=== PATIENT | male | born 1985 | race Caucasian/White ===

== ENCOUNTER 2016-12-28 16:15 | Emergency (ER) | payer MEDICAID, OTHER ==
--- OUTSIDE RECORDS SUMMARY | 2016-12-28 16:49 | XMS REPORT | CCD ---
:1985 Author Name RADHA KERN Address [address] Unavailable [place], [place] [address] Care Team Providers Name Role Phone GERALDINE AHUJA Attending Physician Unavailable GERALDINE AHUJA Er Physician 1 Unavailable Vital Signs Unknown or Not Available. Allergies Allergy Code Allergy Type Reaction Status CODEINE 2670 Drug allergy Active Procedures Unknown or Not Available. History of Immunizations Unknown or Not Available. Problems Unknown or Not Available. Results Unknown or Not Available. Active Medications Medication Code Dose Units Frequency Route Modification Start Date/Time KlonoPIN 0.5MG 205233 0.5 MILLIGRAMS ORAL 02/17/2015 Oral Tablet 19:42 Omeprazole 20MG 438163 20 MILLIGRAMS ORAL 02/17/2015 Oral Capsule, 19:42 Delayed Release Albuterol HFA 152924 1-2 PUFF Every 4hr as INHALED FOR WHEEZING 2014 0.09MG/1INH needed 12:53 Inhalation Aerosol Powder PREDNISONE 30 0 1 TABLET TWICE A DAY ORAL 02/15/2015 MG 12:50 Medications Administered During Visit Unknown or Not Available. Encounters Encounter Diagnosis Diagnosis Code Start Date ACUTE BRONCHOSPASM 94620 02/15/2015 Social History Smoking Status Code Start Date End Date Current every day smoker [id number] Patient Decision Aids Unknown or Not Available. Discharge Instructions You were admitted to [facility] on 02/15/2015 with a principal diagnosis of ACUTE BRONCHOSPASM. You were discharged from [facility] on 02/15/2015. Should you have any questions prior to discharge, please contact a member of your healthcare team. If you have left the hospital and have any questions, please contact your primary care physician. Chief Complaint and Reason For Visit Chief Complaint Date of Onset COUGH CONGESTION Function Status Unknown or Not Available. Plan of Care Unknown or Not Available. Referral/Transition of Care Unknown or Not Available.
--- OUTSIDE RECORDS SUMMARY | 2016-12-28 16:49 | XMS REPORT | CCD ---
:1985 Author Name RADHA KERN Address [address] Unavailable [place], [place] [id number] Care Team Providers Name Role Phone TREVIN SWEENEY MD Attending Physician Unavailable TREVIN SWEENEY MD Er Physician 1 Unavailable KAYLEY Jeff Registered Nurse Unavailable Vital Signs Vital Sign Value Unit Date/Time Recent/Initial? Weight Measured 212 lbs 02/17/2015 19:06 Initial VS Height 67 in 02/17/2015 19:06 Initial VS BMI (Body Mass Index) 33.2 kg/m^2 02/17/2015 19:06 Initial VS BSA (Body Surface Area) 2.13 m^2 02/17/2015 19:06 Initial VS Allergies Allergy Code Allergy Type Reaction Status CODEINE 2670 Drug allergy Active Procedures Unknown or Not Available. History of Immunizations Unknown or Not Available. Problems Unknown or Not Available. Results Unknown or Not Available. Active Medications Medication Code Dose Units Frequency Route Modification Start Date/Time KlonoPIN 0.5MG 689305 0.5 MILLIGRAMS ORAL 02/17/2015 Oral Tablet 19:42 Omeprazole 20MG 576606 20 MILLIGRAMS ORAL 02/17/2015 Oral Capsule, 19:42 Delayed Release Albuterol HFA 912852 1-2 PUFF Every 4hr as INHALED FOR WHEEZING 2014 0.09MG/1INH needed 12:53 Inhalation Aerosol Powder Medications Administered During Visit Unknown or Not Available. Encounters Encounter Diagnosis Diagnosis Code Start Date ASTHMA, UNSPECIFIED 84897 02/17/2015 Social History Smoking Status Code Start Date End Date Current every day smoker [id number] Patient Decision Aids Unknown or Not Available. Discharge Instructions You were admitted to [facility] on 02/17/2015 with a principal diagnosis of ASTHMA, UNSPECIFIED. You were discharged from [facility] on 02/17/2015. Should you have any questions prior to discharge, please contact a member of your healthcare team. If you have left the hospital and have any questions, please contact your primary care physician. Chief Complaint and Reason For Visit Chief Complaint Date of Onset NOT FEELING GOOD Function Status Unknown or Not Available. Plan of Care Unknown or Not Available. Referral/Transition of Care Unknown or Not Available.
--- OUTSIDE RECORDS SUMMARY | 2016-12-28 16:49 | XMS REPORT | CCD ---
:1985 Author Name RADHA KERN Address [address] Unavailable [place], [place] [phone] Care Team Providers Name Role Phone ISAAK SANDS Attending Physician Unavailable ISAAK SANDS Er Physician 1 Unavailable Vital Signs Vital Sign Value Unit Date/Time Recent/Initial? Weight Measured 212 lbs 04/16/2015 07:59 Initial VS Height 67 in 04/16/2015 07:59 Initial VS BMI (Body Mass Index) 33.2 kg/m^2 04/16/2015 07:59 Initial VS BSA (Body Surface Area) 2.13 m^2 04/16/2015 07:59 Initial VS Allergies Allergy Code Allergy Type Reaction Status CODEINE 2670 Drug allergy NAUSEA Active Procedures Unknown or Not Available. History of Immunizations Unknown or Not Available. Problems Unknown or Not Available. Results Unknown or Not Available. Active Medications Medication Code Dose Units Frequency Route Modification Start Date/Time KlonoPIN 0.5MG 360100 0.5 MILLIGRAMS ORAL 02/17/2015 Oral Tablet 19:42 Omeprazole 20MG 644053 20 MILLIGRAMS ORAL 02/17/2015 Oral Capsule, 19:42 Delayed Release Albuterol HFA 358821 1-2 PUFF Every 4hr as INHALED FOR WHEEZING 2014 0.09MG/1INH needed 12:53 Inhalation Aerosol Powder Medications Administered During Visit Unknown or Not Available. Encounters Encounter Diagnosis Diagnosis Code Start Date DENTAL DISORDER NOS 5259 04/16/2015 Social History Smoking Status Code Start Date End Date Current every day smoker [id number] Patient Decision Aids Unknown or Not Available. Discharge Instructions You were admitted to [facility] on 04/16/2015 with a principal diagnosis of DENTAL DISORDER NOS. You were discharged from [facility] on 04/16/2015. Should you have any questions prior to discharge, please contact a member of your healthcare team. If you have left the hospital and have any questions, please contact your primary care physician. Chief Complaint and Reason For Visit Chief Complaint Date of Onset DENTAL Function Status Unknown or Not Available. Plan of Care Unknown or Not Available. Referral/Transition of Care Unknown or Not Available.
--- OUTSIDE RECORDS SUMMARY | 2016-12-28 16:49 | XMS REPORT | CCD ---
:1985 Author Name ROSSANA JAVIER Address [address] Unavailable [place], [place] [phone] Care Team Providers Name Role Phone MARVA WEST Attending Physician Unavailable Vital Signs Unknown or Not Available. Allergies Allergy Code Allergy Type Reaction Status CODEINE 2670 Drug allergy NAUSEA Active TORADOL 27579 Drug allergy Active Procedures Procedure Code Procedure Type Date LUMBOSAC SPINE X-RAY NEC 8724 ICD-9 CM, Volume 3 06/28/2015 L-SPINE 2-[id number] 06/28/2015 History of Immunizations Unknown or Not Available. Problems Unknown or Not Available. Results Unknown or Not Available. Active Medications Medication Code Dose Units Frequency Route Modification Start Date/Time Omeprazole 20MG 427472 20 MILLIGRAMS ORAL 02/17/2015 19:42 Oral Capsule, Delayed Release Prescription Detail TAKE 20 MILLIGRAMS ORAL Albuterol HFA 332874 1-2 PUFF Every 4hr as INHALED FOR WHEEZING 2014 12:53 0.09MG/1INH needed Inhalation Aerosol Powder Prescription Detail 1-2 PUFF INHALED Every 4hr as needed FOR WHEEZING Medications Administered During Visit Unknown or Not Available. Encounters Encounter Diagnosis Diagnosis Code Start Date LUMBOSACRAL SPONDYLOSIS 7213 06/28/2015 Social History Smoking Status Code Start Date End Date Current every day smoker [id number] Patient Decision Aids Unknown or Not Available. Discharge Instructions You were admitted to [facility] on 06/28/2015 with a principal diagnosis of LUMBOSACRAL SPONDYLOSIS. You had the following procedures done:LUMBOSAC SPINE X-RAY NEC You were discharged from [facility] on 06/28/2015. Should you have any questions prior to discharge, please contact a member of your healthcare team. If you have left the hospital and have any questions, please contact your primary care physician. Chief Complaint and Reason For Visit Unknown or Not Available. Function Status Unknown or Not Available. Plan of Care Unknown or Not Available. Referral/Transition of Care Unknown or Not Available.
--- OUTSIDE RECORDS SUMMARY | 2016-12-28 16:49 | XMS REPORT | CCD ---
:1985 Author Name FELY VILLANUEVA Address [address] Unavailable [place], [place] [phone] Care Team Providers Name Role Phone CHICHO VALENZUELA Attending Physician Unavailable CHICHO VALENZUELA Er Physician 1 Unavailable Vital Signs Vital Sign Value Unit Date/Time Recent/Initial? Weight Measured 218 lbs 02/23/2015 08:12 Initial VS Height 68 in 02/23/2015 08:12 Initial VS BMI (Body Mass Index) 33.15 kg/m^2 02/23/2015 08:12 Initial VS BSA (Body Surface Area) 2.18 m^2 02/23/2015 08:12 Initial VS Allergies Allergy Code Allergy Type Reaction Status CODEINE 2670 Drug allergy Active Procedures Unknown or Not Available. History of Immunizations Unknown or Not Available. Problems Unknown or Not Available. Results Unknown or Not Available. Active Medications Medication Code Dose Units Frequency Route Modification Start Date/Time KlonoPIN 0.5MG 333776 0.5 MILLIGRAMS ORAL 02/17/2015 Oral Tablet 19:42 Omeprazole 20MG 196522 20 MILLIGRAMS ORAL 02/17/2015 Oral Capsule, 19:42 Delayed Release Albuterol HFA 010478 1-2 PUFF Every 4hr as INHALED FOR WHEEZING 2014 0.09MG/1INH needed 12:53 Inhalation Aerosol Powder Medications Administered During Visit Unknown or Not Available. Encounters Encounter Diagnosis Diagnosis Code Start Date ACUTE URI NOS 4659 02/23/2015 Social History Smoking Status Code Start Date End Date Current every day smoker [id number] Patient Decision Aids Unknown or Not Available. Discharge Instructions You were admitted to [facility] on 02/23/2015 with a principal diagnosis of ACUTE URI NOS. You were discharged from [facility] on 02/23/2015. Should you have any questions prior to discharge, please contact a member of your healthcare team. If you have left the hospital and have any questions, please contact your primary care physician. Chief Complaint and Reason For Visit Chief Complaint Date of Onset NEEDS WORK RELEASE Function Status Unknown or Not Available. Plan of Care Unknown or Not Available. Referral/Transition of Care Unknown or Not Available.
--- OUTSIDE RECORDS SUMMARY | 2016-12-28 16:49 | XMS REPORT | CCD ---
:1985 Author Name RADHA KERN Address [address] [place] [phone] Care Team Providers Name Role Phone ISAAK SANDS Attending Physician Unavailable ISAAK SANDS Er Physician 1 Unavailable CARLOS Hughes Registered Nurse Unavailable Vital Signs Vital Sign Value Unit Date/Time Recent/Initial? Weight Measured 208 lbs 03/17/2015 17:24 Initial VS Height 69 in 03/17/2015 17:24 Initial VS BMI (Body Mass Index) 30.72 kg/m^2 03/17/2015 17:24 Initial VS BSA (Body Surface Area) 2.14 m^2 03/17/2015 17:24 Initial VS Allergies Allergy Code Allergy Type Reaction Status CODEINE 2670 Drug allergy Active Procedures Procedure Code Procedure Type Date FEMUR 2 VIEWS [place] [id number] SN[address] 03/17/2015 History of Immunizations Unknown or Not Available. Problems Unknown or Not Available. Results Unknown or Not Available. Active Medications Unknown or Not Available. Medications Administered During Visit Unknown or Not Available. Encounters Encounter Diagnosis Diagnosis Code Start Date CONTUSION OF THIGH 33505 03/17/2015 Social History Smoking Status Code Start Date End Date Current every day smoker [id number] Patient Decision Aids Unknown or Not Available. Discharge Instructions You were admitted to [facility] on 03/17/2015 with a principal diagnosis of CONTUSION OF THIGH. You were discharged from [facility] on 03/17/2015. Should you have any questions prior to discharge, please contact a member of your healthcare team. If you have left the hospital and have any questions, please contact your primary care physician. Chief Complaint and Reason For Visit Chief Complaint Date of Onset LEG INJURY Function Status Unknown or Not Available. Plan of Care Unknown or Not Available. Referral/Transition of Care Unknown or Not Available.
--- OUTSIDE RECORDS SUMMARY | 2016-12-28 16:49 | XMS REPORT | CCD ---
:1985 Author Name ROSSANA JAVIER Address [address] Unavailable [place], [place] [phone] Care Team Providers Name Role Phone RAN RIGGINS Attending Physician Unavailable RAN RIGGINS Er Physician 1 Unavailable Vital Signs Unknown or Not Available. Allergies Allergy Code Allergy Type Reaction Status CODEINE 2670 Drug allergy NAUSEA Active TORADOL 97700 Drug allergy Active Procedures Unknown or Not Available. History of Immunizations Unknown or Not Available. Problems Unknown or Not Available. Results Unknown or Not Available. Active Medications Medication Code Dose Units Frequency Route Modification Start Date/Time Omeprazole 20MG 959481 20 MILLIGRAMS ORAL 02/17/2015 19:42 Oral Capsule, Delayed Release Prescription Detail TAKE 20 MILLIGRAMS ORAL Albuterol HFA 733331 1-2 PUFF Every 4hr as INHALED FOR WHEEZING 2014 12:53 0.09MG/1INH needed Inhalation Aerosol Powder Prescription Detail 1-2 PUFF INHALED Every 4hr as needed FOR WHEEZING Medications Administered During Visit Unknown or Not Available. Encounters Encounter Diagnosis Diagnosis Code Start Date Intervertebral disc disorders with radiculopathy, lumbar M5116 10/20/2015 region Social History Smoking Status Code Start Date End Date Current every day smoker [id number] Patient Decision Aids Unknown or Not Available. Chief Complaint and Reason For Visit Chief Complaint Date of Onset BACK PAIN Function Status Unknown or Not Available. Plan of Care Unknown or Not Available. Referral/Transition of Care Unknown or Not Available.
--- OUTSIDE RECORDS SUMMARY | 2016-12-28 16:49 | XMS REPORT | CCD ---
:1985 Author Name RADHA KERN Address [address] Unavailable [place], [place] [phone] Care Team Providers Name Role Phone TREVIN SWEENEY MD Attending Physician Unavailable TREVIN SWEENEY MD Er Physician 1 Unavailable Vital Signs Vital Sign Value Unit Date/Time Recent/Initial? Weight Measured 203 lbs 04/17/2015 01:43 Initial VS Height 67 in 04/17/2015 01:43 Initial VS BMI (Body Mass Index) 31.79 kg/m^2 04/17/2015 01:43 Initial VS BSA (Body Surface Area) 2.09 m^2 04/17/2015 01:43 Initial VS Allergies Allergy Code Allergy Type Reaction Status CODEINE 2670 Drug allergy NAUSEA Active TORADOL 96743 Drug allergy Active Procedures Procedure Code Procedure Type Date Injection or infusion of therapeutic or 9929 ICD-9 CM, Volume 3 04/17/2015 prophylactic substance History of Immunizations Unknown or Not Available. Problems Unknown or Not Available. Results Unknown or Not Available. Active Medications Medication Code Dose Units Frequency Route Modification Start Date/Time KlonoPIN 0.5MG 018644 0.5 MILLIGRAMS ORAL 02/17/2015 19:42 Oral Tablet Prescription Detail TAKE 0.5 MILLIGRAMS ORAL Omeprazole 20MG Oral Capsule, Delayed 377761 20 MILLIGRAMS ORAL 2014 19:42 Release Prescription Detail TAKE 20 MILLIGRAMS ORAL Albuterol HFA 656495 1-2 PUFF Every 4hr as INHALED FOR WHEEZING 2014 12:53 0.09MG/1INH needed Inhalation Aerosol Powder Prescription Detail 1-2 PUFF INHALED Every 4hr as needed FOR WHEEZING Medications Administered During Visit Unknown or Not Available. Encounters Encounter Diagnosis Diagnosis Code Start Date DENTAL DISORDER NOS 5259 04/17/2015 Social History Smoking Status Code Start Date End Date Current every day smoker [id number] Patient Decision Aids Unknown or Not Available. Discharge Instructions You were admitted to [facility] on 04/17/2015 with a principal diagnosis of DENTAL DISORDER NOS. You had the following procedures done:INJECT INFUSE NEC You were discharged from [facility] on 04/17/2015. Should you have any questions prior to discharge, please contact a member of your healthcare team. If you have left the hospital and have any questions, please contact your primary care physician. Chief Complaint and Reason For Visit Chief Complaint Date of Onset TOOTH STILL HURTS Function Status Unknown or Not Available. Plan of Care Unknown or Not Available. Referral/Transition of Care Unknown or Not Available.
--- OUTSIDE RECORDS SUMMARY | 2016-12-28 16:49 | XMS REPORT | CCD ---
:1985 Author Name RADHA KERN Minerva Address [address] Unavailable [place], [place] [phone] Care Team Providers Name Role Phone CHICHO VALENZUELA Attending Physician Unavailable CHICHO VALENZUELA Er Physician 1 Unavailable CHRIS Herrera Registered Nurse Unavailable Vital Signs Vital Sign Value Unit Date/Time Recent/Initial? Weight Measured 208 lbs 03/18/2015 15:15 Initial VS Height 66 in 03/18/2015 15:15 Initial VS BMI (Body Mass Index) 33.57 kg/m^2 03/18/2015 15:15 Initial VS BSA (Body Surface Area) 2.1 m^2 03/18/2015 15:15 Initial VS Allergies Allergy Code Allergy Type Reaction Status CODEINE 2670 Drug allergy Active Procedures Unknown or Not Available. History of Immunizations Unknown or Not Available. Problems Unknown or Not Available. Results Unknown or Not Available. Active Medications Medication Code Dose Units Frequency Route Modification Start Date/Time KlonoPIN 0.5MG 079013 0.5 MILLIGRAMS ORAL 02/17/2015 Oral Tablet 19:42 Omeprazole 20MG 997034 20 MILLIGRAMS ORAL 02/17/2015 Oral Capsule, 19:42 Delayed Release Albuterol HFA 102716 1-2 PUFF Every 4hr as INHALED FOR WHEEZING 2014 0.09MG/1INH needed 12:53 Inhalation Aerosol Powder Medications Administered During Visit Unknown or Not Available. Encounters Encounter Diagnosis Diagnosis Code Start Date SKIN SENSATION DISTURB 7820 03/18/2015 Social History Smoking Status Code Start Date End Date Current every day smoker [id number] Patient Decision Aids Unknown or Not Available. Discharge Instructions You were admitted to [facility] on 03/18/2015 with a principal diagnosis of SKIN SENSATION DISTURB. You were discharged from [facility] on 03/18/2015. Should you have any questions prior to [...]
--- OUTSIDE RECORDS SUMMARY | 2016-12-28 16:49 | XMS REPORT | CCD ---
:1985 Author Name ROSSANA JAVIER Address [address] Unavailable [place], [place] [phone] Care Team Providers Name Role Phone ISAAK SANDS Attending Physician Unavailable ISAAK SANDS Er Physician 1 Unavailable SHANDRA BUSTAMANTE (Secondary) Physician Unavailable Vital Signs Unknown or Not Available. Allergies Allergy Code Allergy Type Reaction Status CODEINE 2670 Drug allergy NAUSEA Active TORADOL 94096 Drug allergy Active Procedures Unknown or Not Available. History of Immunizations Unknown or Not Available. Problems Unknown or Not Available. Results Unknown or Not Available. Active Medications Medication Code Dose Units Frequency Route Modification Start Date/Time Omeprazole 20MG 573040 20 MILLIGRAMS ORAL 02/17/2015 19:42 Oral Capsule, Delayed Release Prescription Detail TAKE 20 MILLIGRAMS ORAL Albuterol HFA 651796 1-2 PUFF Every 4hr as INHALED FOR WHEEZING 2014 12:53 0.09MG/1INH needed Inhalation Aerosol Powder Prescription Detail 1-2 PUFF INHALED Every 4hr as needed FOR WHEEZING Medications Administered During Visit Unknown or Not Available. Encounters Encounter Diagnosis Diagnosis Code Start Date Traumatic rupture of lumbar intervertebral disc, initial [id number] 01/31/2016 encounter Social History Smoking Status Code Start Date End Date Current every day smoker [id number] Patient Decision Aids Unknown or Not Available. Discharge Instructions You were admitted to [facility] on 01/31/2016 16:24 with a principal diagnosis of Traumatic rupture of lumbar intervertebral disc, init encntr You were discharged from [facility] on 01/31/2016 16:40 Should you have any questions prior to [...]
--- OUTSIDE RECORDS SUMMARY | 2016-12-28 16:49 | XMS REPORT | Continuity of Care Document ---
:1985 Author Organization [facility] ([facility]) Address [address] [place] [address] Phone [phone] Care Team Providers Name Role Phone Melinda Brambila Primary Care Provider [phone] Source Comments This disclosure is being made pursuant to the Care Everywhere program, applicable federal and state laws, and may not contain all informaitonavailable regarding this patient.[facility] ([facility]) Active Allergies and Adverse Reactions Not on File Current Medications Not on file Active Problems Not on file Social History Tobacco Use Types Packs/Day Years Used Date Never Assessed Plan of Care Health Maintenance Due Date Last Done Comments Hepatitis B Vaccine (1 of 3 - Primary Series) 1985 Tdap Vaccine 1994 Lipid Disorder Screening 2001 MMR Vaccine 2001 Td Vaccine 2001 Varicella Vaccine (1 of 2 - Adult - No Evidence of 2001 Immunity) Influenza Vaccine: Seasonal (#1) 05/01/2016 Results from Last 3 Months Not on file
--- OUTSIDE RECORDS SUMMARY | 2016-12-28 16:49 | XMS REPORT | CCD ---
:1985 Author Name RADHA KERN Minerva Address [address] Unavailable [place], [place] [address] Care Team Providers Name Role Phone CHICHO VALENZUELA Attending Physician Unavailable CHICHO VALENZUELA Er Physician 1 Unavailable Vital Signs Unknown or Not Available. Allergies Allergy Code Allergy Type Reaction Status CODEINE 2670 Drug allergy Active Procedures Procedure Code Procedure Type Date CHEST [id number] 02/16/2015 History of Immunizations Unknown or Not Available. Problems Unknown or Not Available. Results Unknown or Not Available. Active Medications Unknown or Not Available. Medications Administered During Visit Unknown or Not Available. Encounters Encounter Diagnosis Diagnosis Code Start Date UNSPEC VIRAL INFECTION 07728 02/16/2015 Social History Smoking Status Code Start Date End Date Current every day smoker [id number] Patient Decision Aids Unknown or Not Available. Discharge Instructions You were admitted to [facility] on 02/16/2015 with a principal diagnosis of UNSPEC VIRAL INFECTION. You were discharged from [facility] on 02/16/2015. Should you have any questions prior to discharge, please contact a member of your healthcare team. If you have left the hospital and have any questions, please contact your primary care physician. Chief Complaint and Reason For Visit Chief Complaint Date of Onset COUGH POSS PNEUMONIA Function Status Unknown or Not Available. Plan of Care Unknown or Not Available. Referral/Transition of Care Unknown or Not Available.
--- OUTSIDE RECORDS SUMMARY | 2016-12-28 16:49 | XMS REPORT | CCD ---
:1985 Author Name ROSSANA JAVIER Address [address] Unavailable [place] [employer], [place] [id number] Care Team Providers Name Role Phone PAMELA GERBER Attending Physician Unavailable Vital Signs Unknown or Not Available. Allergies Allergy Code Allergy Type Reaction Status CODEINE 2670 Drug allergy NAUSEA Active TORADOL 14548 Drug allergy Active Procedures Procedure Code Procedure Type Date HAND [address] [place] [id number] 08/22/2016 History of Immunizations Unknown or Not Available. Problems Unknown or Not Available. Results Unknown or Not Available. Active Medications Medication Code Dose Units Frequency Route Modification Start Date/Time Omeprazole 20MG [id number] 20 MILLIGRAMS ORAL 02/17/2015 19:42 Oral Capsule, Delayed Release Prescription Detail TAKE 20 MILLIGRAMS ORAL Albuterol HFA 727441 1-2 PUFF Every 4hr as INHALED FOR WHEEZING 2014 12:53 0.09MG/1INH needed Inhalation Aerosol Powder Prescription Detail 1-2 PUFF INHALED Every 4hr as needed FOR WHEEZING Medications Administered During Visit Unknown or Not Available. Encounters Encounter Diagnosis Diagnosis Code Start Date Displaced fracture of base of fifth metacarpal bone, right [id number] 08/22/2016 hand, subsequent encounter for fracture with routine healing Social History Smoking Status Code Start Date End Date Current every day smoker [id number] Patient Decision Aids Unknown or Not Available. Discharge Instructions You were admitted to [facility] on 08/22/2016 14:54 with a principal diagnosis of Displaced fracture of base of fifth metacarpal bone, right hand, subsequen You were discharged from [facility] on 08/22/2016 14:54 Should you have any questions prior to [...]
[2016-12-28] MEDS ORDERED: ORPHENADRINE CITRATE 30 MG/ML VIAL IM ONE (16:53)
[2016-12-28] MEDS ORDERED: NAPROXEN SODIUM 550 MG TABLET PO ONE (16:56)
[2016-12-28] MEDS ORDERED: ORPHENADRINE CITRATE 30 MG/ML VIAL ONE (17:02)
[2016-12-28] MEDS ORDERED: NAPROXEN SODIUM 550 MG TABLET ONE (17:03)
--- NOTE | 2016-12-28 17:05 | ERNOTE ---
Back Pain ER HPI Date of Service: 12/28/16 Presenting Symptoms: injury/pain to back Time Seen by Provider: 12/28/16 16:31 Source: patient Exam Limitations: no limitations Immunizations: IMMUNIZATION HX Immunizations Up to Date Yes History of Influenza Vaccine Yes Hx Pneumococcal Vaccination Yes Allergies/Adverse Reactions: Allergies codeine [Codeine] Allergy (Intermediate, Verified 04/19/15 15:51) Penicillins Allergy (Intermediate, Verified 04/19/15 15:51) gabapentin Adverse Reaction (Verified 12/28/16 16:26) ketorolac tromethamine [From Toradol] Adverse Reaction (Verified 04/19/15 15:51) Hives Home Medications: HOME MEDICATIONS Clonazepam 1 mg PO DAILY 12/28/16 [Last Taken Unknown] Cyclobenzaprine HCl [Flexeril] 10 mg PO TID PRN #30 tab 12/28/16 [Last Taken Unknown] Lisdexamfetamine Dimesylate [Vyvanse] 60 mg PO DAILY 12/28/16 [Last Taken Unknown] Naproxen [Naprosyn] 500 mg PO BID PRN #60 tab 12/28/16 [Last Taken Unknown] Omeprazole [Prilosec] 20 mg PO BID 12/28/16 [Last Taken Unknown] Valsartan/Hydrochlorothiazide [Diovan Hct 320-12.5 mg Tab] 1 each PO DAILY 12/28 [Last Taken Unknown] Narrative: Pt. comes in with c/o low back pain that started this afternoon after he felt a pull in his back when putting weights on his tractor. Pt. denies any numbness or tingling, SOB, or CP, NVD. Pt. does state that he has a burning sensation down his R leg and buttock. Pt. denies any incontinence of bowel or bladder. Review of Systems - Review of Systems Constitutional: Present: no symptoms reported. Absent: recent illness, fever, chills, weakness, fatigue, malaise EYE: Present: no symptoms reported ENT: Present: no symptoms reported Respiratory: Present: no symptoms reported. Absent: shortness of breath, cough , wheezing Cardiology: Present: no symptoms reported. Absent: chest pain, edema Gastrointestinal/Abdominal: Present: no symptoms reported. Absent: nausea, vomiting, diarrhea Genitourinary: Present: no symptoms reported. Absent: frequency, pain, dysuria , decreased urinary output Musculoskeletal: Present: back pain, muscle pain. Absent: neck pain, joint pain Skin: Present: no symptoms reported Neurological: Present: no symptoms reported. Absent: headache, dizziness/light- headedness, numbness, tingling All Other Systems: All systems neg except as marked - Patient's Past Medical History Patient History - Medical: No pertinent hx Patient History - Cardiac/Respiratory: Hypertension Patient History - Cancer: No Hx of Cancer Patient History - Surgical Procedures: No surgical history Patient History - Other: None - Social History Living Situations: parents Abuse History: No History of abuse Psych History: Hx of Anxiety Smoking Status: Current every day smoker Alcohol Use: none Drug Use: none - Immunizations Immunizations Up to Date: Yes Hx Pneumococcal Vaccination: Yes History of Influenza Vaccine: Yes Physical Exam - Physical Exam General Appearance: Present: wd/wn, alert, no apparent distress Eye Exam: Normal inspection: bilateral, PERRL: bilateral, EOMI: bilateral Ears, Nose, Throat: Present: normal ENT inspection, normal pharynx Neck: Present: normal inspection, nontender. Absent: lymphadenopathy (R), lymphadenopathy (L) Respiratory: Present: no respiratory distress, normal breath sounds, no accessory muscle use, chest nontender, lungs clear Cardiovascular/Chest: Present: regular rate, rhythm, no murmur, normal peripheral pulses Gastrointestinal/Abdominal: Present: normal bowel sounds, nontender, nondistended, soft, no organomegaly Back Exam: Present: no CVA tenderness, vertebral tenderness - L4/5, decreased range of motion - flexion and rotation Extremity Exam: Present: normal inspection, non-tender, normal range of motion, no edema Neurological Exam: Present: alert, oriented, normal mood/affect, no motor/ sensory deficits Skin Exam: Present: normal color, warm/dry. Absent: pallor, skin rash ED Progress - Vital Signs Patient's Vital Signs:: I have reviewed the patient's vital signs. Vital Signs: Vital Signs 12/28/16 16:20 Temperature 37.0 C Pulse Rate 91 Respiratory 14 Rate Blood Pressure 125/84 O2 Sat by Pulse 98 Oximetry - X-Ray X-Ray #1 X-Ray: lumbosacral Interpretation: Interp. by me X-ray Comments: facet joint arthropathy - Progress/Reassessment Chief Complaint: Back Pain Departure Clinical Impression: Facet joint disease of lumbosacral region - Departure Disposition: Home self-care Condition: Good Instructions: Facet Syndrome Additional Instructions: Stretch back daily and take medications daily follow up with primary provider in 2-3 days as you likely need further MRI or referral for physical therapy. Referrals: Melinda Brambila PA [Primary Care Provider] - Prescriptions: Cyclobenzaprine HCl [Flexeril] 10 mg PO TID PRN #30 tab PRN Reason: MUSCLE SPASMS Naproxen [Naprosyn] 500 mg PO BID PRN #60 tab PRN Reason: Pain
[2016-12-28 17:42] VITALS: BP 151/89
== END 2016-12-28 18:23 | disposition home or self-care (01) ==
LOC: ER 16:15
DX: M54.08 Panniculitis affecting regions of neck and back, sacral and sacrococcygeal region (principal); Z72.0 Tobacco use; I10 Essential (primary) hypertension; X58.XXXA Exposure to other specified factors, initial encounter; Y93.89 Activity, other specified; Y92.79 Other farm location as the place of occurrence of the external cause; Y99.9 Unspecified external cause status